=== PATIENT | female | born 1940 | race Two or more races ===

== ENCOUNTER 2017-10-19 10:25 | Outpatient (CLI) | payer OTHER ==
[~2017-10-19 10:25] MED LIST: ORPH100T PO; TESSALON PERLE100 MG PO; TUSSI PRES-B L120 M1 PO
== END 2017-10-19 10:36 | disposition home or self-care (01) ==
LOC: LAB 10:25
DX: D63.1 Anemia in chronic kidney disease (principal); I10 Essential (primary) hypertension; N18.4 Chronic kidney disease, stage 4 (severe)

== ENCOUNTER → 2017-11-05 09:57 | Outpatient (CLI) | payer OTHER | END | disposition home or self-care (01) | LOC: LAB 09:57 | DX: N18.3 Chronic kidney disease, stage 3 (moderate) (principal) ==

== ENCOUNTER 2017-12-23 08:52 | Outpatient (CLI) | payer OTHER | END 2017-12-23 08:59 | disposition home or self-care (01) | LOC: LAB 08:52 | DX: E78.1 Pure hyperglyceridemia (principal); I12.9 Hypertensive chronic kidney disease with stage 1 through stage 4 chronic kidney disease, or unspecified chronic kidney disease; E03.8 Other specified hypothyroidism; D55.0 Anemia due to glucose-6-phosphate dehydrogenase [G6PD] deficiency; D51.8 Other vitamin B12 deficiency anemias; D63.1 Anemia in chronic kidney disease ==

== ENCOUNTER 2018-01-20 09:14 | Outpatient (CLI) | payer OTHER | END 2018-01-20 09:24 | disposition home or self-care (01) | LOC: LAB 09:14 | DX: N18.5 Chronic kidney disease, stage 5 (principal); I10 Essential (primary) hypertension ==

== ENCOUNTER 2018-02-18 09:32 | Emergency (ER) | payer OTHER ==
[~2018-02-18] VITALS: Ht 162.6 cm; Wt 90.7 kg
[2018-02-18] MEDS ORDERED: NORFLEX100MG (10:05)
[2018-02-18] MEDS ORDERED: ISOSORBIDE DINI30 MG (10:05)
[2018-02-18] MEDS ORDERED: CARVEDILOL6.25 MG (10:05)
[2018-02-18] MEDS ORDERED: SIMVASTATIN20 MG (10:06)
[2018-02-18] MEDS ORDERED: LEVOTHYROXINE25 MCG (10:06)
[2018-02-18] MEDS ORDERED: COZAAR100 MG (10:06)
[2018-02-18] MEDS ORDERED: VITAMIN D35000 UNI1 (10:07)
[2018-02-18] MEDS ORDERED: TANDEM PLUS CA1 EACH (10:07)
[2018-02-18] MEDS ORDERED: NITROGLYCERIN0.4 MG (10:15)
[2018-02-18] MEDS ORDERED: DICLOFENAC SODI50 MG PO (20:52)
== END 2018-02-18 21:17 | disposition home or self-care (01) ==
LOC: ER 09:32
DX: M94.0 Chondrocostal junction syndrome [Tietze] (principal); R07.89 Other chest pain

== ENCOUNTER 2018-03-23 09:34 | Outpatient (CLI) | payer OTHER ==
[~2018-03-23 09:34] MED LIST changes: +CARVEDILOL6.25 MG; +COZAAR100 MG; +DICLOFENAC SODI50 MG PO; +ISOSORBIDE DINI30 MG; +LEVOTHYROXINE25 MCG; +NITROGLYCERIN0.4 MG; +NORFLEX100MG; +SIMVASTATIN20 MG; +TANDEM PLUS CA1 EACH; +VITAMIN D35000 UNI1
== END 2018-03-23 09:43 | disposition home or self-care (01) ==
LOC: LAB 09:34
DX: D55.0 Anemia due to glucose-6-phosphate dehydrogenase [G6PD] deficiency (principal); D51.8 Other vitamin B12 deficiency anemias; D52.8 Other folate deficiency anemias; D63.1 Anemia in chronic kidney disease; N18.4 Chronic kidney disease, stage 4 (severe); I10 Essential (primary) hypertension; E03.8 Other specified hypothyroidism; D63.8 Anemia in other chronic diseases classified elsewhere; N60.81 Other benign mammary dysplasias of right breast; D47.2 Monoclonal gammopathy; N39.0 Urinary tract infection, site not specified

== ENCOUNTER 2018-06-29 09:58 | Outpatient (CLI) | payer OTHER | END 2018-06-29 10:08 | disposition home or self-care (01) | LOC: LAB 09:58 | DX: D50.0 Iron deficiency anemia secondary to blood loss (chronic) (principal); E11.69 Type 2 diabetes mellitus with other specified complication; E78.2 Mixed hyperlipidemia; E03.0 Congenital hypothyroidism with diffuse goiter; N39.0 Urinary tract infection, site not specified; E55.9 Vitamin D deficiency, unspecified; M81.0 Age-related osteoporosis without current pathological fracture; Z12.11 Encounter for screening for malignant neoplasm of colon; K62.5 Hemorrhage of anus and rectum; R10.84 Generalized abdominal pain; E11.29 Type 2 diabetes mellitus with other diabetic kidney complication; N18.4 Chronic kidney disease, stage 4 (severe); D51.8 Other vitamin B12 deficiency anemias; D63.1 Anemia in chronic kidney disease; D52.8 Other folate deficiency anemias; D63.8 Anemia in other chronic diseases classified elsewhere ==

== ENCOUNTER 2018-07-01 09:51 | Outpatient (CLI) | payer OTHER | END 2018-07-01 09:59 | disposition home or self-care (01) | LOC: LAB 09:51 | DX: D50.0 Iron deficiency anemia secondary to blood loss (chronic) (principal); E11.69 Type 2 diabetes mellitus with other specified complication; E78.2 Mixed hyperlipidemia; E03.0 Congenital hypothyroidism with diffuse goiter; N39.0 Urinary tract infection, site not specified; E55.9 Vitamin D deficiency, unspecified; M81.0 Age-related osteoporosis without current pathological fracture; Z12.11 Encounter for screening for malignant neoplasm of colon; K62.5 Hemorrhage of anus and rectum; R10.84 Generalized abdominal pain; E11.29 Type 2 diabetes mellitus with other diabetic kidney complication ==

== ENCOUNTER 2018-10-05 09:26 | Outpatient (CLI) | payer OTHER | END 2018-10-05 09:35 | disposition home or self-care (01) | LOC: LAB 09:26 | DX: D55.0 Anemia due to glucose-6-phosphate dehydrogenase [G6PD] deficiency (principal); D51.8 Other vitamin B12 deficiency anemias; D52.8 Other folate deficiency anemias; D63.1 Anemia in chronic kidney disease; N18.4 Chronic kidney disease, stage 4 (severe); I10 Essential (primary) hypertension; E03.8 Other specified hypothyroidism; D53.2 Scorbutic anemia; N60.81 Other benign mammary dysplasias of right breast; D47.2 Monoclonal gammopathy; N39.0 Urinary tract infection, site not specified; D50.8 Other iron deficiency anemias ==

== ENCOUNTER 2018-12-19 09:28 | Outpatient (CLI) | payer OTHER | END 2018-12-19 13:02 | disposition home or self-care (01) | LOC: LAB 09:28 | DX: E03.8 Other specified hypothyroidism (principal); D55.0 Anemia due to glucose-6-phosphate dehydrogenase [G6PD] deficiency; D51.8 Other vitamin B12 deficiency anemias; D52.8 Other folate deficiency anemias; D63.1 Anemia in chronic kidney disease; I10 Essential (primary) hypertension; D63.8 Anemia in other chronic diseases classified elsewhere; N60.81 Other benign mammary dysplasias of right breast; D47.2 Monoclonal gammopathy; N39.0 Urinary tract infection, site not specified; D50.8 Other iron deficiency anemias; R97.0 Elevated carcinoembryonic antigen [CEA]; R97.8 Other abnormal tumor markers ==

== ENCOUNTER 2018-12-28 11:31 | Outpatient (CLI) | payer OTHER | END 2018-12-28 11:40 | disposition home or self-care (01) | LOC: RAD 501 11:31 | DX: M54.5 Low back pain (principal) ==

== ENCOUNTER 2019-02-12 09:30 | Outpatient (CLI) | payer OTHER | END 2019-02-12 09:34 | disposition home or self-care (01) | LOC: MRI 09:30 | DX: G30.1 Alzheimer's disease with late onset (principal); F01.50 Vascular dementia, unspecified severity, without behavioral disturbance, psychotic disturbance, mood disturbance, and anxiety | CPT/HCPCS: 70551 ==

== ENCOUNTER → 2019-03-03 08:07 | Outpatient (CLI) | payer OTHER | END | disposition home or self-care (01) | LOC: LAB 08:07 | DX: E03.8 Other specified hypothyroidism (principal); D55.0 Anemia due to glucose-6-phosphate dehydrogenase [G6PD] deficiency; D51.8 Other vitamin B12 deficiency anemias; D52.8 Other folate deficiency anemias; D63.1 Anemia in chronic kidney disease; N18.4 Chronic kidney disease, stage 4 (severe); I10 Essential (primary) hypertension; N60.81 Other benign mammary dysplasias of right breast; N39.0 Urinary tract infection, site not specified; D50.8 Other iron deficiency anemias ==

== ENCOUNTER 2019-06-14 09:00 | Outpatient (CLI) | payer OTHER | END 2019-06-14 09:04 | disposition home or self-care (01) | LOC: LAB 09:00 | DX: D55.0 Anemia due to glucose-6-phosphate dehydrogenase [G6PD] deficiency (principal); D51.8 Other vitamin B12 deficiency anemias; D52.8 Other folate deficiency anemias; D63.1 Anemia in chronic kidney disease; N18.4 Chronic kidney disease, stage 4 (severe); E03.8 Other specified hypothyroidism; D63.8 Anemia in other chronic diseases classified elsewhere; N60.81 Other benign mammary dysplasias of right breast; D47.2 Monoclonal gammopathy; N39.0 Urinary tract infection, site not specified ==

== ENCOUNTER 2019-09-15 09:12 | Outpatient (CLI) | payer OTHER | END 2019-09-15 09:30 | disposition home or self-care (01) | LOC: LAB 09:12 | DX: D55.0 Anemia due to glucose-6-phosphate dehydrogenase [G6PD] deficiency (principal); D51.8 Other vitamin B12 deficiency anemias; D52.8 Other folate deficiency anemias; D63.1 Anemia in chronic kidney disease; N18.4 Chronic kidney disease, stage 4 (severe); E03.8 Other specified hypothyroidism; D63.8 Anemia in other chronic diseases classified elsewhere; N60.81 Other benign mammary dysplasias of right breast; D47.2 Monoclonal gammopathy; N39.0 Urinary tract infection, site not specified; D50.8 Other iron deficiency anemias ==

== ENCOUNTER 2019-09-15 09:42 | Emergency (ER) | payer OTHER ==
[~2019-09-15] VITALS: Ht 167.6 cm; Wt 93.0 kg
== END 2019-09-15 16:10 | disposition home or self-care (01) ==
LOC: ER 09:42
DX: S00.03XA Contusion of scalp, initial encounter (principal); W18.09XA Striking against other object with subsequent fall, initial encounter; Y93.89 Activity, other specified; Y92.018 Other place in single-family (private) house as the place of occurrence of the external cause; Y99.8 Other external cause status

== ENCOUNTER 2019-10-27 08:14 | Outpatient (CLI) | payer OTHER | END 2019-10-27 08:20 | disposition home or self-care (01) | LOC: LAB 08:14 | DX: D50.8 Other iron deficiency anemias (principal); D55.0 Anemia due to glucose-6-phosphate dehydrogenase [G6PD] deficiency; D51.8 Other vitamin B12 deficiency anemias; D52.8 Other folate deficiency anemias; D63.1 Anemia in chronic kidney disease; N18.4 Chronic kidney disease, stage 4 (severe); E03.8 Other specified hypothyroidism; D63.8 Anemia in other chronic diseases classified elsewhere; N60.81 Other benign mammary dysplasias of right breast; D47.2 Monoclonal gammopathy; N39.0 Urinary tract infection, site not specified; N18.3 Chronic kidney disease, stage 3 (moderate); I11.9 Hypertensive heart disease without heart failure ==

== ENCOUNTER 2019-11-18 08:24 | Emergency (ER) | payer OTHER ==
[~2019-11-18] VITALS: Ht 165.1 cm; Wt 92.5 kg
== END 2019-11-18 10:07 | disposition home or self-care (01) ==
LOC: ER 08:24
DX: M54.5 Low back pain (principal)

== ENCOUNTER 2020-02-22 07:58 | Outpatient (CLI) | payer OTHER | END 2020-02-22 08:07 | disposition home or self-care (01) | LOC: LAB 07:58 | DX: D50.8 Other iron deficiency anemias (principal); I10 Essential (primary) hypertension; E03.8 Other specified hypothyroidism; D55.0 Anemia due to glucose-6-phosphate dehydrogenase [G6PD] deficiency; D51.8 Other vitamin B12 deficiency anemias; D52.8 Other folate deficiency anemias; D63.1 Anemia in chronic kidney disease; N18.4 Chronic kidney disease, stage 4 (severe); D63.8 Anemia in other chronic diseases classified elsewhere; N60.81 Other benign mammary dysplasias of right breast; N39.0 Urinary tract infection, site not specified; D47.2 Monoclonal gammopathy ==

== ENCOUNTER 2020-06-14 21:35 | Emergency (ER) | payer OTHER ==
[~2020-06-14] VITALS: Ht 160 cm; Wt 91.2 kg
== END 2020-06-14 23:41 | disposition home or self-care (01) ==
LOC: ER 21:35
DX: M54.2 Cervicalgia (principal)

== ENCOUNTER 2020-06-15 08:02 | Emergency (ER) | payer OTHER ==
[~2020-06-15] VITALS: Ht 160 cm; Wt 91.2 kg
== END 2020-06-15 11:15 | disposition home or self-care (01) ==
LOC: ER 08:02
DX: M48.02 Spinal stenosis, cervical region (principal); M50.323 Other cervical disc degeneration at C6-C7 level

== ENCOUNTER → 2020-07-12 09:47 | Outpatient (CLI) | payer OTHER | END | disposition home or self-care (01) | LOC: LAB 09:47 | PROVIDERS: ATTEND Internal Medicine Hematology & Oncology | DX: D63.1 Anemia in chronic kidney disease (principal); N18.4 Chronic kidney disease, stage 4 (severe) ==

== ENCOUNTER 2020-09-01 07:49 | Outpatient (CLI) | payer OTHER | END 2020-09-01 07:59 | disposition home or self-care (01) | LOC: SONOGRAMA 07:49 → MAMO-SONO 08:30 | PROVIDERS: ATTEND Internal Medicine Nephrology | DX: K76.0 Fatty (change of) liver, not elsewhere classified (principal); N18.4 Chronic kidney disease, stage 4 (severe) ==

== ENCOUNTER → 2020-09-01 09:24 | Outpatient (CLI) | payer OTHER | END | disposition home or self-care (01) | LOC: LAB 09:24 | PROVIDERS: ATTEND Internal Medicine Nephrology | DX: N18.4 Chronic kidney disease, stage 4 (severe) (principal); D63.1 Anemia in chronic kidney disease ==

== ENCOUNTER 2020-09-03 07:42 | Outpatient (CLI) | payer OTHER | END 2020-09-03 15:00 | disposition home or self-care (01) | LOC: LAB 07:42 | PROVIDERS: ATTEND Internal Medicine Nephrology | DX: N18.4 Chronic kidney disease, stage 4 (severe) (principal); D63.1 Anemia in chronic kidney disease ==

== ENCOUNTER 2020-09-06 09:23 | Outpatient (CLI) | payer OTHER | END 2020-09-06 09:27 | disposition home or self-care (01) | LOC: LAB 09:23 | PROVIDERS: ATTEND Internal Medicine Nephrology | DX: N18.4 Chronic kidney disease, stage 4 (severe) (principal); D63.1 Anemia in chronic kidney disease ==

== ENCOUNTER 2020-12-06 08:02 | Outpatient (CLI) | payer OTHER | END 2020-12-06 08:14 | disposition home or self-care (01) | LOC: LAB 08:02 | PROVIDERS: ATTEND Internal Medicine Hematology & Oncology | DX: D50.8 Other iron deficiency anemias (principal); I10 Essential (primary) hypertension; R79.89 Other specified abnormal findings of blood chemistry; R74.02 Elevation of levels of lactic acid dehydrogenase [LDH]; K76.89 Other specified diseases of liver; E55.9 Vitamin D deficiency, unspecified; E03.8 Other specified hypothyroidism; D55.0 Anemia due to glucose-6-phosphate dehydrogenase [G6PD] deficiency; D51.8 Other vitamin B12 deficiency anemias; D52.8 Other folate deficiency anemias; D63.1 Anemia in chronic kidney disease; N18.4 Chronic kidney disease, stage 4 (severe); D63.8 Anemia in other chronic diseases classified elsewhere; N60.81 Other benign mammary dysplasias of right breast; D47.2 Monoclonal gammopathy; N39.0 Urinary tract infection, site not specified; E08.69 Diabetes mellitus due to underlying condition with other specified complication ==

== ENCOUNTER 2021-01-13 06:35 | Outpatient (CLI) | payer OTHER | END 2021-01-13 06:44 | disposition home or self-care (01) | LOC: LAB 06:35 | PROVIDERS: ATTEND Internal Medicine Nephrology | DX: N18.4 Chronic kidney disease, stage 4 (severe) (principal); D63.1 Anemia in chronic kidney disease; E03.8 Other specified hypothyroidism; I10 Essential (primary) hypertension; E66.8 Other obesity ==

== ENCOUNTER 2021-01-13 07:09 | Outpatient (CLI) | payer OTHER | END 2021-01-13 07:18 | disposition home or self-care (01) | LOC: SONOGRAMA 07:09 → MAMO-SONO 07:15 → SONOGRAMA 07:18 | DX: N18.4 Chronic kidney disease, stage 4 (severe) (principal); D63.1 Anemia in chronic kidney disease; E03.8 Other specified hypothyroidism; E66.8 Other obesity; D55.0 Anemia due to glucose-6-phosphate dehydrogenase [G6PD] deficiency ==

== ENCOUNTER → 2021-02-28 07:25 | Outpatient (CLI) | payer OTHER ==
[~2021-02-28 07:25] MED LIST changes: +VITAMINA D
== END | disposition home or self-care (01) ==
LOC: LAB 07:25
PROVIDERS: ATTEND Internal Medicine Hematology & Oncology
DX: D50.8 Other iron deficiency anemias (principal); R79.89 Other specified abnormal findings of blood chemistry; I10 Essential (primary) hypertension; R74.02 Elevation of levels of lactic acid dehydrogenase [LDH]; K76.89 Other specified diseases of liver; E11.9 Type 2 diabetes mellitus without complications; E55.9 Vitamin D deficiency, unspecified; E03.8 Other specified hypothyroidism; D55.0 Anemia due to glucose-6-phosphate dehydrogenase [G6PD] deficiency; D51.8 Other vitamin B12 deficiency anemias; D52.8 Other folate deficiency anemias; D63.1 Anemia in chronic kidney disease; N18.4 Chronic kidney disease, stage 4 (severe); D63.8 Anemia in other chronic diseases classified elsewhere; N60.81 Other benign mammary dysplasias of right breast; D47.2 Monoclonal gammopathy; N39.0 Urinary tract infection, site not specified

== ENCOUNTER → 2021-04-25 | Emergency (ER) | payer OTHER ==
[~2021-04-25] VITALS: Ht 162.6 cm; Wt 90.7 kg
== END | disposition left against medical advice (07) ==
LOC: ER 06:17
DX: Z53.20 Procedure and treatment not carried out because of patient's decision for unspecified reasons (principal)

== ENCOUNTER 2021-06-20 09:03 | Outpatient (CLI) | payer OTHER | END 2021-06-20 09:09 | disposition home or self-care (01) | LOC: LAB 09:03 | PROVIDERS: ATTEND Internal Medicine Hematology & Oncology | DX: I10 Essential (primary) hypertension (principal); D50.8 Other iron deficiency anemias; R79.89 Other specified abnormal findings of blood chemistry; R74.02 Elevation of levels of lactic acid dehydrogenase [LDH]; K76.89 Other specified diseases of liver; D51.8 Other vitamin B12 deficiency anemias; D55.0 Anemia due to glucose-6-phosphate dehydrogenase [G6PD] deficiency; D63.1 Anemia in chronic kidney disease; N18.4 Chronic kidney disease, stage 4 (severe); D47.2 Monoclonal gammopathy; D52.8 Other folate deficiency anemias; D63.8 Anemia in other chronic diseases classified elsewhere; E03.8 Other specified hypothyroidism; N39.0 Urinary tract infection, site not specified; N60.81 Other benign mammary dysplasias of right breast ==

== ENCOUNTER 2021-09-12 07:29 | Outpatient (CLI) | payer OTHER | END 2021-09-12 07:35 | disposition home or self-care (01) | LOC: LAB 07:29 | PROVIDERS: ATTEND Internal Medicine Hematology & Oncology | DX: E03.8 Other specified hypothyroidism (principal); E78.00 Pure hypercholesterolemia, unspecified; I11.9 Hypertensive heart disease without heart failure ==

== ENCOUNTER 2021-10-09 08:14 | Outpatient (CLI) | payer OTHER | END 2021-10-09 10:50 | disposition home or self-care (01) | LOC: SONOGRAMA → LAB 08:14 | PROVIDERS: ATTEND Internal Medicine Hematology & Oncology | DX: D50.8 Other iron deficiency anemias (principal); R79.89 Other specified abnormal findings of blood chemistry; I10 Essential (primary) hypertension; R74.02 Elevation of levels of lactic acid dehydrogenase [LDH]; K76.89 Other specified diseases of liver; D51.8 Other vitamin B12 deficiency anemias; D55.0 Anemia due to glucose-6-phosphate dehydrogenase [G6PD] deficiency; D63.1 Anemia in chronic kidney disease; D47.2 Monoclonal gammopathy; D52.8 Other folate deficiency anemias; D63.8 Anemia in other chronic diseases classified elsewhere; E03.8 Other specified hypothyroidism; N39.0 Urinary tract infection, site not specified; N60.81 Other benign mammary dysplasias of right breast ==

== ENCOUNTER 2021-12-19 07:09 | Outpatient (CLI) | payer OTHER | END 2021-12-19 07:14 | disposition home or self-care (01) | LOC: LAB 07:09 | PROVIDERS: ATTEND Internal Medicine Hematology & Oncology | DX: D50.8 Other iron deficiency anemias (principal); R79.9 Abnormal finding of blood chemistry, unspecified; R74.02 Elevation of levels of lactic acid dehydrogenase [LDH]; K76.89 Other specified diseases of liver; D51.8 Other vitamin B12 deficiency anemias; D55.0 Anemia due to glucose-6-phosphate dehydrogenase [G6PD] deficiency; D63.1 Anemia in chronic kidney disease; D17.20 Benign lipomatous neoplasm of skin and subcutaneous tissue of unspecified limb; D52.8 Other folate deficiency anemias; D63.8 Anemia in other chronic diseases classified elsewhere; E03.8 Other specified hypothyroidism; N39.0 Urinary tract infection, site not specified; N60.81 Other benign mammary dysplasias of right breast; N18.4 Chronic kidney disease, stage 4 (severe) ==

== ENCOUNTER → 2022-02-06 08:32 | Outpatient (CLI) | payer OTHER | END | disposition home or self-care (01) | LOC: LAB 08:32 | PROVIDERS: ATTEND Internal Medicine Cardiovascular Disease | DX: E03.9 Hypothyroidism, unspecified (principal); I11.9 Hypertensive heart disease without heart failure; E78.00 Pure hypercholesterolemia, unspecified ==

== ENCOUNTER 2022-03-27 09:20 | Outpatient (CLI) | payer OTHER | END 2022-03-27 09:27 | disposition home or self-care (01) | LOC: LAB 09:20 | PROVIDERS: ATTEND Internal Medicine Hematology & Oncology | DX: D50.8 Other iron deficiency anemias (principal); R79.9 Abnormal finding of blood chemistry, unspecified; R74.02 Elevation of levels of lactic acid dehydrogenase [LDH]; K76.89 Other specified diseases of liver; D55.0 Anemia due to glucose-6-phosphate dehydrogenase [G6PD] deficiency; D63.1 Anemia in chronic kidney disease; D47.2 Monoclonal gammopathy; D52.8 Other folate deficiency anemias; D63.8 Anemia in other chronic diseases classified elsewhere; E03.8 Other specified hypothyroidism; N39.0 Urinary tract infection, site not specified; N60.81 Other benign mammary dysplasias of right breast; N18.4 Chronic kidney disease, stage 4 (severe) ==

== ENCOUNTER 2022-07-10 07:44 | Outpatient (CLI) | payer OTHER | END 2022-07-10 07:45 | disposition home or self-care (01) | LOC: LAB 07:44 | PROVIDERS: ATTEND Internal Medicine Hematology & Oncology | DX: D50.8 Other iron deficiency anemias (principal); D63.1 Anemia in chronic kidney disease; N18.4 Chronic kidney disease, stage 4 (severe); D51.8 Other vitamin B12 deficiency anemias; D47.2 Monoclonal gammopathy; D52.8 Other folate deficiency anemias; D63.8 Anemia in other chronic diseases classified elsewhere; E03.8 Other specified hypothyroidism; I10 Essential (primary) hypertension; N39.0 Urinary tract infection, site not specified; N60.81 Other benign mammary dysplasias of right breast ==

== ENCOUNTER 2022-10-16 07:50 | Outpatient (CLI) | payer OTHER | END 2022-10-16 07:53 | disposition home or self-care (01) | LOC: LAB 07:50 | PROVIDERS: ATTEND Internal Medicine Hematology & Oncology | DX: D50.8 Other iron deficiency anemias (principal); I10 Essential (primary) hypertension; R74.02 Elevation of levels of lactic acid dehydrogenase [LDH]; K76.89 Other specified diseases of liver ==

== ENCOUNTER 2022-12-01 07:20 | Outpatient (CLI) | payer OTHER | END 2022-12-01 07:36 | disposition home or self-care (01) | LOC: MAMO-SONO 07:20 | PROVIDERS: ATTEND Internal Medicine Hematology & Oncology | DX: Z12.31 Encounter for screening mammogram for malignant neoplasm of breast (principal); N63.0 Unspecified lump in unspecified breast; N64.4 Mastodynia; D51.8 Other vitamin B12 deficiency anemias; D55.0 Anemia due to glucose-6-phosphate dehydrogenase [G6PD] deficiency; D63.1 Anemia in chronic kidney disease; N18.4 Chronic kidney disease, stage 4 (severe); D47.2 Monoclonal gammopathy; D52.8 Other folate deficiency anemias; D63.8 Anemia in other chronic diseases classified elsewhere; E03.8 Other specified hypothyroidism; N39.0 Urinary tract infection, site not specified; N60.81 Other benign mammary dysplasias of right breast ==

== ENCOUNTER 2023-01-03 14:10 | Outpatient (CLI) | payer OTHER | END 2023-01-03 14:16 | disposition home or self-care (01) | LOC: RAD 14:10 | PROVIDERS: ATTEND Internal Medicine | DX: J44.1 Chronic obstructive pulmonary disease with (acute) exacerbation (principal); J01.90 Acute sinusitis, unspecified ==

== ENCOUNTER 2023-01-22 07:12 | Outpatient (CLI) | payer OTHER | END 2023-01-22 07:25 | disposition home or self-care (01) | LOC: LAB 07:12 | PROVIDERS: ATTEND Internal Medicine | DX: D64.9 Anemia, unspecified (principal); E11.9 Type 2 diabetes mellitus without complications; E78.00 Pure hypercholesterolemia, unspecified; N39.0 Urinary tract infection, site not specified; E03.8 Other specified hypothyroidism; R19.5 Other fecal abnormalities; Z12.11 Encounter for screening for malignant neoplasm of colon; E55.9 Vitamin D deficiency, unspecified; N18.31 Chronic kidney disease, stage 3a ==

== ENCOUNTER 2023-01-29 10:22 | Outpatient (CLI) | payer OTHER | END 2023-01-29 23:00 | disposition home or self-care (01) | LOC: LAB 10:22 | PROVIDERS: ATTEND Internal Medicine | DX: D64.9 Anemia, unspecified (principal); E11.9 Type 2 diabetes mellitus without complications; E78.00 Pure hypercholesterolemia, unspecified; N39.0 Urinary tract infection, site not specified; E03.8 Other specified hypothyroidism; Z12.11 Encounter for screening for malignant neoplasm of colon; E55.9 Vitamin D deficiency, unspecified; N18.31 Chronic kidney disease, stage 3a ==

== ENCOUNTER 2023-08-28 18:10 | Emergency (ER) | payer OTHER ==
[~2023-08-28] VITALS: Ht 165.1 cm; Wt 86.2 kg
== END 2023-08-28 21:38 | disposition home or self-care (01) ==
LOC: ER 18:10
DX: L03.116 Cellulitis of left lower limb (principal); Z91.013 Allergy to seafood; E03.9 Hypothyroidism, unspecified; E78.00 Pure hypercholesterolemia, unspecified; I12.0 Hypertensive chronic kidney disease with stage 5 chronic kidney disease or end stage renal disease; N18.5 Chronic kidney disease, stage 5; M17.12 Unilateral primary osteoarthritis, left knee

== ENCOUNTER 2023-09-10 07:58 | Outpatient (CLI) | payer OTHER ==
[2023-09-10 09:50] LABS: HEMATOCRIT 31.3 % (36.0-45.00); HEMOGLOBIN 9.8 g/dL (12.0-15.00); MEAN CELL VOLUME 74.6 fL (80.00-100.00); MEAN CORPUSCULAR HEMOGLOBIN 23.3 pg (27.00-32.0); MEAN CORPUSCULAR HGB CONC 31.2 g/dl (32.0-36.0); PLATELET COUNT 261 K/uL (150-450); RED BLOOD COUNT 4.19 M/uL (4.00-6.00); RED CELL DISTRIBUTION WIDTH 15.8 % (11.5-14.5)
[2023-09-10 10:29] LABS: % SATURACION 31.4 % (15-50); ALBUMIN 3.4 gm/dL (3.4-5.0); BILIRUBIN TOTAL 0.44 mg/dL (0.3-1.2); CALCIUM 8.3 mg/dL (8.5-10.1); CREATININE SERUM 2.64 mg/dL (0.55-1.02); GFR 17.31; POTASSIUM 4.57 mEq/L (3.5-5.1); TOTAL PROTEIN 7.4 gm/dL (6.4-8.2)
[2023-09-10 10:35] LABS: FERRITIN 476.6 NG/ML (8-252)
== END 2023-09-10 07:59 | disposition home or self-care (01) ==
LOC: LAB 07:58
PROVIDERS: ATTEND Internal Medicine Hematology & Oncology
DX: D50.8 Other iron deficiency anemias (principal); R74.02 Elevation of levels of lactic acid dehydrogenase [LDH]; K76.89 Other specified diseases of liver; D55.0 Anemia due to glucose-6-phosphate dehydrogenase [G6PD] deficiency; D51.8 Other vitamin B12 deficiency anemias; D63.1 Anemia in chronic kidney disease; N18.4 Chronic kidney disease, stage 4 (severe); D52.8 Other folate deficiency anemias; D63.8 Anemia in other chronic diseases classified elsewhere; E03.8 Other specified hypothyroidism; N39.0 Urinary tract infection, site not specified; N60.81 Other benign mammary dysplasias of right breast; D47.2 Monoclonal gammopathy

== ENCOUNTER 2024-10-27 08:36 | Outpatient (CLI) | payer OTHER ==
[2024-10-27 09:16] LABS: HEMATOCRIT 30.1 % (36.0-45.00); HEMOGLOBIN 9.5 g/dL (12.0-15.00); MEAN CELL VOLUME 77.9 fL (80.00-100.00); MEAN CORPUSCULAR HEMOGLOBIN 24.6 pg (27.00-32.0); MEAN CORPUSCULAR HGB CONC 31.6 g/dl (32.0-36.0); PLATELET COUNT 314 K/uL (150-450); RED BLOOD COUNT 3.86 M/uL (4.00-6.00); RED CELL DISTRIBUTION WIDTH 14.7 % (11.5-14.5)
[2024-10-27 09:55] LABS: % SATURACION 27.6 % (15-50); ALBUMIN 3.6 gm/dL (3.4-5.0); BILIRUBIN TOTAL 0.46 mg/dL (0.3-1.2); CALCIUM 9.3 mg/dL (8.5-10.1); CREATININE SERUM 2.99 mg/dL (0.55-1.02); GFR 14.96; GLOBULINA 4.3 G/DL (2.4-3.5); POTASSIUM 4.76 mEq/L (3.5-5.1); TOTAL PROTEIN 7.9 gm/dL (6.4-8.2)
[2024-10-27 09:58] LABS: FERRITIN 589.9 NG/ML (8-252)
== END 2024-10-27 08:40 | disposition home or self-care (01) ==
LOC: LAB 08:36
PROVIDERS: ATTEND Internal Medicine Hematology & Oncology
DX: D50.8 Other iron deficiency anemias (principal); I10 Essential (primary) hypertension; R74.02 Elevation of levels of lactic acid dehydrogenase [LDH]; K76.89 Other specified diseases of liver

== ENCOUNTER 2025-01-19 10:24 | Outpatient (CLI) | payer OTHER ==
[2025-01-19 11:36] LABS: MEAN CELL VOLUME 78.5 fL (80.00-100.00); MEAN CORPUSCULAR HEMOGLOBIN 24.3 pg (27.00-32.0); PLATELET COUNT 258 K/uL (150-450); RED BLOOD COUNT 3.82 M/uL (4.00-6.00)
[2025-01-19 11:38] LABS: HEMOGLOBIN 9.3 g/dL (12.0-15.00)
[2025-01-19 11:58] LABS: ALBUMIN 3.4 gm/dL (3.4-5.0); CALCIUM 8.6 mg/dL (8.5-10.1); CREATININE SERUM 2.79 mg/dL (0.55-1.02); GFR 16.17; PHOSPHOROUS 4.2 mg/dL (2.5-4.9); POTASSIUM 5.33 mEq/L (3.5-5.1)
== END 2025-01-19 10:26 | disposition home or self-care (01) ==
LOC: LAB 10:24
PROVIDERS: ATTEND Internal Medicine Nephrology
DX: N18.4 Chronic kidney disease, stage 4 (severe) (principal); I12.9 Hypertensive chronic kidney disease with stage 1 through stage 4 chronic kidney disease, or unspecified chronic kidney disease

== ENCOUNTER → 2025-03-09 07:32 | Outpatient (CLI) | payer OTHER ==
[2025-03-09 08:34] LABS: BASO % 0.7 % (0.1-1.2); EOS # 0.12 (0.04-0.54); HEMATOCRIT 31.2 % (34.1-44.9); HEMOGLOBIN 9.8 g/dL (11.2-15.7); LYMPH # 1.12 (1.18-3.74); MEAN CORPUSCULAR HEMOGLOBIN 24.3 pg (25.6-32.2); MONO # 0.78 (0.24-0.82); NEUT # 3.79 (1.56-6.13); NEUT % 64.5 % (34.0-71.1); PLATELET COUNT 277 K/uL (163-369); RED BLOOD COUNT 4.04 M/uL (3.93-5.22); RED CELL DISTRIBUTION WIDTH 15.7 % (11.6-14.4)
[2025-03-09 08:44] LABS: MONO % 13.3 % (4.7-12.5)
[2025-03-09 09:24] LABS: ALBUMIN 3.5 gm/dL (3.4-5.0); BILIRUBIN TOTAL 0.38 mg/dL (0.3-1.2); CALCIUM 8.8 mg/dL (8.5-10.1); CREATININE SERUM 2.94 mg/dL (0.55-1.02); GFR 15.22; GLOBULINA 3.9 G/DL (2.4-3.5); POTASSIUM 4.9 mEq/L (3.5-5.1); TOTAL PROTEIN 7.4 gm/dL (6.4-8.2)
[2025-03-09 09:28] LABS: FERRITIN 367.1 NG/ML (8-252)
[2025-03-11 10:14] LABS: FOLIC ACID > 20.00 ng/ml (4.78-20)
== END | disposition home or self-care (01) ==
LOC: LAB 07:32
PROVIDERS: ATTEND Internal Medicine Hematology & Oncology
DX: D55.0 Anemia due to glucose-6-phosphate dehydrogenase [G6PD] deficiency (principal); D51.8 Other vitamin B12 deficiency anemias; D63.1 Anemia in chronic kidney disease; N18.4 Chronic kidney disease, stage 4 (severe); D53.8 Other specified nutritional anemias; D63.8 Anemia in other chronic diseases classified elsewhere; D50.8 Other iron deficiency anemias; E30.8 Other disorders of puberty; I10 Essential (primary) hypertension; N39.0 Urinary tract infection, site not specified; N60.81 Other benign mammary dysplasias of right breast; D47.2 Monoclonal gammopathy; K76.89 Other specified diseases of liver; R74.02 Elevation of levels of lactic acid dehydrogenase [LDH]

== ENCOUNTER 2025-03-30 08:10 | Outpatient (CLI) | payer OTHER ==
[2025-03-30 09:12] LABS: BASO % 0.6 % (0.1-1.2); EOS # 0.05 (0.04-0.54); EOS % 0.9 % (0.7-7.0); HEMATOCRIT 30.6 % (34.1-44.9); LYMPH # 0.98 (1.18-3.74); MEAN CORPUSCULAR HEMOGLOBIN 23.8 pg (25.6-32.2); MONO # 0.66 (0.24-0.82); NEUT # 3.69 (1.56-6.13); NEUT % 67.8 % (34.0-71.1); PLATELET COUNT 317 K/uL (163-369); RED BLOOD COUNT 4.03 M/uL (3.93-5.22); RED CELL DISTRIBUTION WIDTH 15.4 % (11.6-14.4)
[2025-03-30 09:36] LABS: HEMOGLOBIN 9.6 g/dL (11.2-15.7); MONO % 12.1 % (4.7-12.5)
[2025-03-30 09:40] LABS: ALBUMIN 3.8 gm/dL (3.4-5.0); BILIRUBIN TOTAL 0.66 mg/dL (0.3-1.2); CALCIUM 8.6 mg/dL (8.5-10.1); CREATININE SERUM 3.13 mg/dL (0.55-1.02); GFR 14.16; GLOBULINA 3.6 G/DL (2.4-3.5); POTASSIUM 5.47 mEq/L (3.5-5.1); TOTAL PROTEIN 7.4 gm/dL (6.4-8.2)
[2025-03-30 10:53] LABS: ob NEGATIVE (NEGATIVE)
== END 2025-03-30 08:14 | disposition home or self-care (01) ==
LOC: LAB 08:10
PROVIDERS: ATTEND Internal Medicine Hematology & Oncology
DX: D50.8 Other iron deficiency anemias (principal); R19.5 Other fecal abnormalities; Z12.11 Encounter for screening for malignant neoplasm of colon; C50.919 Malignant neoplasm of unspecified site of unspecified female breast; R97.8 Other abnormal tumor markers; C25.9 Malignant neoplasm of pancreas, unspecified; C56.9 Malignant neoplasm of unspecified ovary; R97.1 Elevated cancer antigen 125 [CA 125]; R97.0 Elevated carcinoembryonic antigen [CEA]; R74.02 Elevation of levels of lactic acid dehydrogenase [LDH]; K76.89 Other specified diseases of liver

== ENCOUNTER 2025-04-06 08:49 | Outpatient (CLI) | payer OTHER ==
[2025-04-06 10:25] LABS: BUN CREA RATIO 14.0 (7.0-25.0); CREATININE SERUM 2.82 mg/dL (0.55-1.02); GFR 15.97; GLUCOSE FASTING 96.0 mg/dL (65-100); OSMOLALITY SERUM 283.0 MOSM/KG (275-295)
== END 2025-04-06 08:52 | disposition home or self-care (01) ==
LOC: LAB 08:49
DX: N18.4 Chronic kidney disease, stage 4 (severe) (principal)

== ENCOUNTER → 2025-06-15 08:23 | Outpatient (CLI) | payer OTHER ==
[2025-06-15 09:41] LABS: BASO % 1.0 % (0.1-1.2); EOS # 0.07 (0.04-0.54); EOS % 1.7 % (0.7-7.0); LYMPH # 0.91 (1.18-3.74); LYMPH % 21.8 % (19.3-53.1); MEAN PLATELET VOLUME 10.90 fl (9.4-12.4); MONO # 0.49 (0.24-0.82); MONO % 11.8 % (4.7-12.5); NEUT # 2.65 (1.56-6.13); NEUT % 63.5 % (34.0-71.1); RED CELL DISTRIBUTION WIDTH 14.5 % (11.6-14.4)
[2025-06-15 10:17] LABS: % SATURACION 16.6 % (15-50); ALT/SGPT 13.0 U/L (12-78); AST/SGOT 18.0 U/L (15-37); BILIRUBIN TOTAL 0.47 mg/dL (0.3-1.2); BUN CREA RATIO 9.0 (7.0-25.0); CREATININE SERUM 2.9 mg/dL (0.55-1.02); FE 45.0 ug/dl (50-170); GFR 15.46; GLOBULINA 3.5 G/DL (2.4-3.5); GLUCOSE FASTING 86.0 mg/dL (65-100); LDH 196.0 U/L (84-246); OSMOLALITY SERUM 284.0 MOSM/KG (275-295)
[2025-06-17 12:55] LABS: FOLIC ACID > 20.00 ng/ml (4.78-20); VITAMIN D3 25 HYDROXY 42.35 ng/ml (30-120)
== END | disposition home or self-care (01) ==
LOC: LAB 08:23
PROVIDERS: ATTEND Internal Medicine Hematology & Oncology
DX: D50.8 Other iron deficiency anemias (principal); D51.8 Other vitamin B12 deficiency anemias; D63.1 Anemia in chronic kidney disease; N18.4 Chronic kidney disease, stage 4 (severe); D52.8 Other folate deficiency anemias; D63.8 Anemia in other chronic diseases classified elsewhere; E03.8 Other specified hypothyroidism; I10 Essential (primary) hypertension; N39.0 Urinary tract infection, site not specified; N60.81 Other benign mammary dysplasias of right breast; D47.2 Monoclonal gammopathy; R74.02 Elevation of levels of lactic acid dehydrogenase [LDH]; K76.89 Other specified diseases of liver; E55.9 Vitamin D deficiency, unspecified

== ENCOUNTER 2025-09-14 09:36 | Outpatient (CLI) | payer OTHER ==
[2025-09-14 10:26] LABS: BASO % 0.6 % (0.1-1.2); EOS # 0.09 (0.04-0.54); EOS % 1.2 % (0.7-7.0); LYMPH # 1.57 (1.18-3.74); LYMPH % 20.2 % (19.3-53.1); MEAN PLATELET VOLUME 10.20 fl (9.4-12.4); MONO # 0.93 (0.24-0.82); MONO % 12.0 % (4.7-12.5); NEUT # 5.09 (1.56-6.13); NEUT % 65.6 % (34.0-71.1); RED CELL DISTRIBUTION WIDTH 13.8 % (11.6-14.4)
[2025-09-14 11:16] LABS: % SATURACION 24.3 % (15-50); FE 58.0 ug/dl (50-170)
== END 2025-09-14 09:40 | disposition home or self-care (01) ==
LOC: LAB 09:36
PROVIDERS: ATTEND Internal Medicine Hematology & Oncology
DX: D55.9 Anemia due to enzyme disorder, unspecified (principal); D51.8 Other vitamin B12 deficiency anemias; D63.1 Anemia in chronic kidney disease; N18.4 Chronic kidney disease, stage 4 (severe); D52.8 Other folate deficiency anemias; D63.8 Anemia in other chronic diseases classified elsewhere; D50.8 Other iron deficiency anemias; E03.9 Hypothyroidism, unspecified; I10 Essential (primary) hypertension; N39.0 Urinary tract infection, site not specified; N60.81 Other benign mammary dysplasias of right breast; D47.2 Monoclonal gammopathy